=== PATIENT | male | born 1990 | race Caucasian/White ===

== ENCOUNTER 2020-07-15 03:44 | Emergency (ER) | payer SELFPAY ==
[~2020-07-15] VITALS: Ht 172.7 cm; Wt 117.9 kg
[2020-07-15 03:52] VITALS: BP 154/83
[2020-07-15] MEDS: KETOROLAC 30 MG/ML VIAL IM ONE (04:28)
[2020-07-15 04:32] VITALS: BP 154/83
== END 2020-07-15 04:31 | disposition home or self-care (01) ==
LOC: MED 03:44
DX: M54.41 Lumbago with sciatica, right side (principal)
CPT/HCPCS: 96372; 99283; J1885

== ENCOUNTER 2022-03-29 03:18 | Emergency (ER) | payer OTHER ==
[~2022-03-29] VITALS: Ht 172.7 cm; Wt 147.9 kg
[2022-03-29 03:23] VITALS: BP 153/82
--- NOTE | 2022-03-29 03:30 | NUR ---
PT TAKEN TO BED 9
--- NOTE | 2022-03-29 03:42 | NUR ---
Dr. Kat at bedside to exam patient.
[2022-03-29] MEDS ORDERED: NACL 0.9% 2,000 ML IV ONE (03:50)
[2022-03-29] MEDS ORDERED: INSULIN REGULAR, HUMAN 100 UNIT/ML VIAL IVP ONE (03:50)
[2022-03-29 04:06] LABS: BASOPHILS # (AUTO) 0.1 K/uL (0.00-0.22); EOSINOPHILS # (AUTO) 0.4 K/uL (0-0.4); NEUTROPHILS # (AUTO) 6.7 K/uL (1.8-7.7); RED CELL DISTRIBUTION WIDTH 14.5 % (11.6-13.7)
[2022-03-29 04:17] LABS: ALBUMIN 3.8 g/dL (3.4-5.0); ANION GAP 14.5 (8-16); ASPARTATE AMINOTRANSFERASE 38 U/L (15-37); BASOPHILS % (AUTO) 1.2 % (0.0-2.0); CARBON DIOXIDE 26.4 mmol/L (21-32); CHLORIDE 93 mmol/L (98-107); CREATININE 1.3 mg/dL (0.6-1.3); EOSINOPHILS % (AUTO) 3.4 % (0.0-4.0); GFR ARICAN-AMERICAN 82 mL/min (>90); HEMATOCRIT 47.6 % (36-52); LYMPHOCYTES # (AUTO) 3.1 K/uL (2.0-11.5); LYMPHOCYTES % (AUTO) 27.8 % (20.5-51.1); MEAN CORPUSCULAR HEMOGLOBIN 27 pg (27-31); MEAN CORPUSCULAR HGB CONC 34 g/dL (33-37); MEAN CORPUSCULAR VOLUME 81.6 fL (80-94); MONOCYTES # (AUTO) 0.7 K/uL (0.8-1.0); MONOCYTES % (AUTO) 6.7 % (1.7-9.3); NEUTROPHILS % (AUTO) 60.9 % (42.2-75.2); PLATELET COUNT (AUTO) 305 K/uL (140-450); POTASSIUM 3.9 mmol/L (3.5-5.1); RED BLOOD CELL COUNT(AUTO) 5.83 MIL/uL (4.20-6.10); SODIUM SERUM 130 mmol/L (136-145); TOTAL BILIRUBIN 0.6 mg/dL (0.0-1.0); UREA NITROGEN, BLOOD 16 mg/dL (7-18)
--- NOTE | 2022-03-29 04:17 | NUR ---
[place] AND URINE COLLECTED AND TAKEN TO LAB.
--- NOTE | 2022-03-29 04:18 | NUR ---
31 YO M BIB SELF WITH C/C OF HIGH BLOOD SUGAR. PT STATES HIS MOTHER CHECKED HIS SUGAR AND IT READ TOO HIGH. PT REPORTS INCREASED THIRST AND URINATION FOR ABOUT 2 WEEKS.PT DENIES N/V/D. PT DENIES BEING DIAGNOSED WITH DM. DENIES HX, RX AND ALLERGIES.
[2022-03-29 04:26] LABS: GLUCOSE 590 mg/dL (74-106)
[2022-03-29 04:48] LABS: ACETONE, SERUM MODERATE (NEGATIVE)
--- NOTE | 2022-03-29 05:25 | NUR ---
PT EXPRESSED HE DOES NOT WANT TO BE ADMITTED UNLESS ABSOLUTELY NECCESARY. WENT TO SPEAK TO PT, EXPLAINED TO PT THE NEED FOR HIS STAY AND IF HE WANTS TO LEAVE IT WOULD BE AMA. PT WANTS TO PROCEED WITH AMA.
[2022-03-29 05:46] LABS: APPEARANCE,URINE CLEAR (CLEAR); BILIRUBIN,URINE NEGATIVE (NEGATIVE); BLOOD, URINE TRACE-L (NEGATIVE); COLOR,URINE YELLOW (YELLOW); LEUKOCYTE ESTERASE ,URINE NEGATIVE (NEGATIVE); NITRITE, URINE NEGATIVE (NEGATIVE); PH,URINE 5.5 (5.0-9.0); UGLUCOSE 3+ (NEGATIVE)
[2022-03-29] MEDS ORDERED: METF-1243 PO (05:49)
[2022-03-29 05:54] LABS: RBC,URINE 0-5 /HPF (0-5)
[2022-03-29 05:55] LABS: WBC,URINE 0-5 /HPF (0-5)
[2022-03-29 06:01] VITALS: BP 127/60
--- NOTE | 2022-03-29 06:01 | NUR ---
Patient discharged with v/s stable. Written and verbal after care instructions given and explained. Patient alert, oriented and verbalized understanding of instructions. Ambulatory with steady gait. All questions addressed prior to discharge. ID band removed. Patient advised to follow up with PMD. Rx of METFORMIN given. Patient educated on indication of medication including possible reaction and side effects. Opportunity to ask questions provided and answered.
== END 2022-03-29 06:01 | disposition left against medical advice (07) ==
LOC: MED 03:18
DX: E11.65 Type 2 diabetes mellitus with hyperglycemia (principal); Z20.822 Contact with and (suspected) exposure to COVID-19; Z79.84 Long term (current) use of oral hypoglycemic drugs
CPT/HCPCS: 36415; 80053; 81001; 82009; 82803; 82948; 83036; 85025; 87426; 96361; 96374; 99283; J1815; J7030

== ENCOUNTER 2024-02-26 21:38 | Emergency (ER) | payer MEDICAID, OTHER ==
[~2024-02-26] VITALS: Ht 165.1 cm; Wt 119.5 kg
[~2024-02-26 21:38] MED LIST: METF-1243 PO
[2024-02-26 22:35] VITALS: BP 132/79; PULSE 99; RESP 18; TEMP 97.2; O2SAT 99
[2024-02-27] MEDS ORDERED: CEPH-588 PO (01:01)
[2024-02-27] MEDS ORDERED: SULF-59 PO (01:01)
[2024-02-27] MEDS: SULFAMETH/TRIMETH DS 800/160MG 1 TAB PO ONE (01:16)
[2024-02-27] MEDS: cephALEXin 500 MG CAP PO ONE (01:16)
== END 2024-02-27 01:17 | disposition home or self-care (01) ==
LOC: MED 21:38
DX: L03.011 Cellulitis of right finger (principal); L03.113 Cellulitis of right upper limb; E11.9 Type 2 diabetes mellitus without complications; Z79.899 Other long term (current) drug therapy
CPT/HCPCS: 99283

== ENCOUNTER 2024-02-28 19:57 | Inpatient (IN) | payer MEDICAID ==
[~2024-02-28] VITALS: Ht 172.7 cm; Wt 118.8 kg
[~2024-02-28 19:57] MED LIST changes: +CEPH-588 PO; +SULF-59 PO
[2024-02-28 20:31] VITALS: BP 158/86; PULSE 95; RESP 16; TEMP 97.6; O2SAT 100
[2024-02-28] MEDS ORDERED: cefTRIAXone 1,000 MG VIAL ONE ×2 (23:26)
[2024-02-28 23:28] LABS: BASOPHILS # (AUTO) 0.1 K/uL (0.00-0.22); BASOPHILS % (AUTO) 0.8 % (0.0-2.0); EOSINOPHILS # (AUTO) 0.5 K/uL (0-0.4); EOSINOPHILS % (AUTO) 3.7 % (0.0-4.0); HEMATOCRIT 44.4 % (36-52); HEMOGLOBIN 15.1 g/dL (12.0-18.0); LYMPHOCYTES # (AUTO) 3.1 K/uL (2.0-11.5); LYMPHOCYTES % (AUTO) 21.5 % (20.5-51.1); MEAN CORPUSCULAR HEMOGLOBIN 28 pg (27-31); MEAN CORPUSCULAR HGB CONC 34 g/dL (33-37); MEAN CORPUSCULAR VOLUME 80.7 fL (80-94); MONOCYTES # (AUTO) 0.9 K/uL (0.8-1.0); NEUTROPHILS # (AUTO) 9.6 K/uL (1.8-7.7); PLATELET COUNT (AUTO) 420 K/uL (140-450); RED BLOOD CELL COUNT(AUTO) 5.51 MIL/uL (4.20-6.10); RED CELL DISTRIBUTION WIDTH 14.6 % (11.6-13.7); WHITE BLOOD COUNT (AUTO) 14.2 K/uL (4.8-10.8)
[2024-02-28] MEDS: cefTRIAXone 1,000 MG in DEXT 5% MINI-BAG PLUS 50 ML IV ONE (23:35)
[2024-02-28] MEDS: NACL 0.9% 1,000 ML IV SCH (23:35)
[2024-02-28 23:39] LABS: ANION GAP 11.4 (8-16); CALCIUM 8.7 mg/dL (8.5-10.1); CARBON DIOXIDE 29.4 mmol/L (21-32); CREATININE 1.1 mg/dL (0.6-1.3); POTASSIUM 3.8 mmol/L (3.5-5.1)
[2024-02-28 23:48] LABS: LACTIC ACID 1.7 mmol/L (0.4-2.0)
[2024-02-29] MEDS ORDERED: MELATONIN 3 MG TAB PO PRN (00:30)
[2024-02-29] MEDS ORDERED: ONDANSETRON 4 MG/2 ML VIAL IVP PRN (00:30)
[2024-02-29] MEDS ORDERED: MORPHINE SULFATE 2 MG/ML SYR IVP PRN (00:30)
[2024-02-29] MEDS ORDERED: POTASSIUM CHLORIDE 10 MEQ TABER PO PRN (00:30)
[2024-02-29] MEDS ORDERED: MAG SULF 2000 MG/WATER PREMIX 50 ML IV PRN (00:30)
[2024-02-29] MEDS ORDERED: HYDROcodone/APAP 5/325 MG 1 TAB TAB PO PRN (00:30)
[2024-02-29] MEDS ORDERED: ACETAMINOPHEN 325 MG TAB PO PRN (00:30)
[2024-02-29] MEDS ORDERED: POLYETHYLENE GLYCOL 17 GM/PKT PO PRN (00:30)
[2024-02-29] MEDS ORDERED: VANCOMYCIN PER PHARMACY MC PRN (00:40)
[2024-02-29] MEDS ORDERED: DEXTROSE 50% 50 ML SYR IVP PRN (01:00)
[2024-02-29] MEDS ORDERED: INSULIN LISPRO SLIDING SCALE 100 UNITS/ML VIAL SUBQ PRN (01:00)
[2024-02-29] MEDS: VANCOMYCIN 1GM/DEXT 5% PREMIX 200 ML IV ONE (01:30)
[2024-02-29 02:20] VITALS: BP 142/92; PULSE 94; RESP 16; TEMP 97; O2SAT 98
[2024-02-29] MEDS: VANCOMYCIN 1,000 MG VIAL ONE (02:48)
[2024-02-29] MEDS: BLOOD GLUCOSE MONITORING 1 DEV DEV FS SCH (06:18)
[2024-02-29 08:01] VITALS: BP 137/79; PULSE 94; RESP 17; TEMP 97.1; O2SAT 98
[2024-02-29 08:11] VITALS: PULSE 82; RESP 17; O2SAT 98
[2024-02-29] MEDS: VANCOMYCIN 1,000 MG in DEXTROSE 5% 250 ML IV SCH (08:53)
[2024-02-29 20:00] VITALS: BP 134/87; PULSE 80; RESP 18; TEMP 96.9; O2SAT 97
[2024-03-01 04:00] VITALS: BP 138/91; PULSE 73; RESP 18; TEMP 97.5; O2SAT 96
[2024-03-01 07:45] VITALS: BP 133/87; PULSE 72; RESP 17; TEMP 97.8; O2SAT 99
[2024-03-01 08:09] LABS: BASOPHILS # (AUTO) 0.1 K/uL (0.00-0.22); BASOPHILS % (AUTO) 0.5 % (0.0-2.0); EOSINOPHILS # (AUTO) 0.5 K/uL (0-0.4); EOSINOPHILS % (AUTO) 4.1 % (0.0-4.0); HEMATOCRIT 48.1 % (36-52); HEMOGLOBIN 16.3 g/dL (12.0-18.0); LYMPHOCYTES % (AUTO) 14.8 % (20.5-51.1); MEAN CORPUSCULAR HEMOGLOBIN 27 pg (27-31); MEAN CORPUSCULAR HGB CONC 34 g/dL (33-37); MEAN CORPUSCULAR VOLUME 80.5 fL (80-94); MONOCYTES # (AUTO) 0.7 K/uL (0.8-1.0); MONOCYTES % (AUTO) 5.4 % (1.7-9.3); NEUTROPHILS % (AUTO) 75.2 % (42.2-75.2); PLATELET COUNT (AUTO) 435 K/uL (140-450); RED BLOOD CELL COUNT(AUTO) 5.98 MIL/uL (4.20-6.10); RED CELL DISTRIBUTION WIDTH 14.9 % (11.6-13.7); WHITE BLOOD COUNT (AUTO) 13.2 K/uL (4.8-10.8)
[2024-03-01 08:26] LABS: ALBUMIN 3.1 g/dL (3.4-5.0); ANION GAP 11.8 (8-16); CALCIUM 8.8 mg/dL (8.5-10.1); CARBON DIOXIDE 28.2 mmol/L (21-32); CREATININE 0.8 mg/dL (0.6-1.3); MAGNESIUM 1.8 mg/dL (1.8-2.4); PHOSPHORUS 2.9 mg/dL (2.5-4.9); TOTAL BILIRUBIN 0.5 mg/dL (0.0-1.0); TOTAL PROTEIN, SERUM 7.6 g/dL (6.4-8.2)
[2024-03-01] MEDS ORDERED: NON ADHERENT DRESSING TP PRN (10:20)
[2024-03-01] MEDS: NON ADHERENT DRESSING TP SCH (11:25)
[2024-03-01 13:13] VITALS: BP 133/87; PULSE 72; RESP 17; TEMP 97.8
[2024-03-01] MEDS ORDERED: DOXY-690 PO (13:52)
[2024-03-01] MEDS ORDERED: ASCO1CAP75 PO (13:52)
== END 2024-03-01 14:25 | disposition home or self-care (01) | DRG 720 ==
LOC: MED 19:57 → UNDOADMIN 02-29 00:23 → MMU 02-29 00:23
PROVIDERS: ADMIT Family Medicine; ATTEND Family Medicine
DX: A41.9 Sepsis, unspecified organism (principal); E11.9 Type 2 diabetes mellitus without complications; L03.011 Cellulitis of right finger; Z79.84 Long term (current) use of oral hypoglycemic drugs; Z79.899 Other long term (current) drug therapy; W57.XXXA Bitten or stung by nonvenomous insect and other nonvenomous arthropods, initial encounter; Y92.89 Other specified places as the place of occurrence of the external cause
CPT/HCPCS: 36415; 71045; 73202; 80048; 80053; 80202; 82948; 83605; 83735; 83880; 84100; 84484; 85025; 87040; 87081; 96365; 99285; J0696; J3370; J7060; Q9967

== ENCOUNTER 2024-06-21 02:15 | Emergency (ER) | payer MEDICAID ==
[~2024-06-21] VITALS: Ht 172.7 cm; Wt 117.9 kg
[~2024-06-21 02:15] MED LIST changes: +ASCO1CAP75 PO; +DOXY-690 PO; -SULF-59 PO
[2024-06-21 02:24] VITALS: BP 131/89; PULSE 98; RESP 16; TEMP 97.1; O2SAT 98
[2024-06-21 04:17] LABS: APPEARANCE,URINE CLEAR (CLEAR); BILIRUBIN,URINE NEGATIVE (NEGATIVE); BLOOD, URINE NEGATIVE (NEGATIVE); COLOR,URINE YELLOW (YELLOW); LEUKOCYTE ESTERASE ,URINE TRACE (NEGATIVE); NITRITE, URINE NEGATIVE (NEGATIVE); PROTEIN,URINE 1+ (NEGATIVE); UGLUCOSE NEGATIVE (NEGATIVE)
[2024-06-21 04:20] LABS: BACTERIA,URINE 10-30 (MOD) /HPF (None Seen); MUCUS,URINE 1+ /LPF (None Seen); RBC,URINE 0-5 /HPF (0-5); SQUAMOUS EPITHELIAL CELL,UR 4-10 (MOD) /LPF (0-3 (FEW))
[2024-06-21] MEDS ORDERED: CEPH-588 PO (04:39)
[2024-06-21 04:56] VITALS: BP 131/89; PULSE 98; RESP 16; TEMP 97.1; O2SAT 98
== END 2024-06-21 04:56 | disposition home or self-care (01) ==
LOC: MED 02:15
DX: N39.0 Urinary tract infection, site not specified (principal); E11.9 Type 2 diabetes mellitus without complications; Z79.899 Other long term (current) drug therapy
CPT/HCPCS: 81001; 87086; 99283